=== PATIENT | female | born 1985 | race Asian ===

== ENCOUNTER 2018-06-07 17:58 | Outpatient (CLI) | payer OTHER | END 2018-06-07 18:01 | disposition short-term general hospital (02) | LOC: AMB 17:58 | DX: R55 Syncope and collapse (principal) | CPT/HCPCS: A0425; A0427 ==

== ENCOUNTER 2018-06-07 18:04 | Emergency (ER) | payer OTHER ==
[~2018-06-07] VITALS: Ht 172.7 cm; Wt 74.8 kg
[2018-06-07 18:11] VITALS: TEMP 98.1
[2018-06-07 18:37] LABS: PLATELET COUNT 281 K/uL (152-353)
[2018-06-07 18:42] LABS: POTASSIUM 2.8 mmol/L (3.6-5.2)
[2018-06-07 22:15] VITALS: BP 155/98
== END 2018-06-07 22:18 | disposition home or self-care (01) ==
LOC: ED 18:04
PROVIDERS: Allergy & Immunology
DX: R56.9 Unspecified convulsions (principal)
CPT/HCPCS: 80053; 81000; 85027; 96360; 96361; 99284

== ENCOUNTER 2018-06-15 18:00 | Emergency (ER) | payer OTHER ==
[~2018-06-15] VITALS: Ht 162.6 cm; Wt 70.3 kg
[2018-06-15 19:34] VITALS: BP 137/83; TEMP 98.8
== END 2018-06-15 20:01 | disposition home or self-care (01) ==
LOC: ED 18:00
DX: L23.9 Allergic contact dermatitis, unspecified cause (principal); J30.89 Other allergic rhinitis
CPT/HCPCS: 96372; 99283; J2930